=== PATIENT | male | born 1945 | race Caucasian/White ===

== ENCOUNTER → 2024-01-16 | Outpatient (CLI) | payer MEDICARE ==
[~2024-01-16] MED LIST: ALBU8.5H INH; HYDR-3490 PO; LOSA100T46 PO
== END ==
LOC: M RAD 14:43
PROVIDERS: ATTEND Internal Medicine Pulmonary Disease
DX: Z87.891 Personal history of nicotine dependence (principal)

== ENCOUNTER 2024-10-01 15:37 | Emergency (ER) | payer MEDICARE ==
[~2024-10-01] VITALS: Ht 167.6 cm; Wt 59.1 kg
[2024-10-01] MEDS ORDERED: ATEN50TA2 (15:47)
[2024-10-01] MEDS ORDERED: IPRA0.00 (15:48)
[2024-10-01 17:16] LABS: BASO # 0.1 10^3/uL (0.0-0.2); BASO % 0.5 % (0.0-1.0); EOS # 0.8 10^3/uL (0.0-0.5); EOS % 7.4 % (0.0-3.0); HEMATOCRIT 46.7 % (42.0-52.0); HEMOGLOBIN 15.4 g/dl (13.5-17.5); LYMPH # 3.1 10^3/uL (1.5-5.0); LYMPH % 27.8 % (24.0-44.0); MEAN CORPUSCULAR HEMOGLOBIN 28.4 pg (27.0-33.0); MEAN CORPUSCULAR VOLUME 86.2 fl (80.0-96.0); MONO # 0.8 10^3/uL (0.0-0.8); NEUTROPHILS # 6.3 10^3/uL (1.5-8.5); NEUTROPHILS % 56.8 % (36.0-66.0); PLATELET COUNT, AUTOMATED 137 10^3/uL (150-450); RED BLOOD COUNT 5.42 10^6/uL (4.30-6.10)
[2024-10-01] MEDS: methylPREDNISolone 125MG 2ML VIAL IV ONE (17:20)
[2024-10-01] MEDS: IPRATROPIUM 0.5MG/ALBUTEROL 2.5MG INH SOL UD 3ML (DUONEB) NEB ONE (17:23)
[2024-10-01] MEDS: ALBUTEROL SULFATE 2.5MG/0.5ML INH NEB SOLN NEB ONE (17:23)
[2024-10-01 17:46] LABS: BILIRUBIN,DIRECT 0.3 MG/DL (<0.4); CALCIUM LEVEL 9.8 MG/DL (8.3-10.6); CK-MB VALUE MASS 3.1 NG/ML (<3.6); CREATININE FOR GFR 1.61 MG/DL (0.70-1.30); GLOMERULAR FILTRATION RATE 44.4 (>42); MB/CK RELATIVE INDEX 2.56 (< OR =4); POTASSIUM SERUM 4.6 MMOL/L (3.5-5.1); TOTAL PROTEIN 7.8 G/DL (5.7-8.2)
[2024-10-01 18:48] LABS: CK-MB VALUE MASS 2.9 NG/ML (<3.6)
[2024-10-01 18:49] LABS: MB/CK RELATIVE INDEX 2.56 (< OR =4)
[2024-10-01 19:16] VITALS: O2SAT 92
[2024-10-01 19:20] VITALS: BP 129/61; TEMP 98.4; O2SAT 92
[2024-10-01] MEDS ORDERED: PRED10TA2 PO (19:23)
== END 2024-10-01 19:34 | disposition home or self-care (01) ==
LOC: M ED 15:37
DX: J44.1 Chronic obstructive pulmonary disease with (acute) exacerbation (principal); Z79.52 Long term (current) use of systemic steroids; Z79.811 Long term (current) use of aromatase inhibitors; Z79.899 Other long term (current) drug therapy; Z95.0 Presence of cardiac pacemaker
CPT/HCPCS: 71045; 80047; 80048; 80076; 82550; 82553; 84484; 85025; 87040; 87486; 87581; 87633; 87798; 93005; 93041; 94640; 94760; 96374; 99285; J2919